=== PATIENT | female | born 1940 | race Caucasian/White ===

== ENCOUNTER 2023-07-31 15:09 | Outpatient (AMB) | payer OTHER, SELFPAY ==
--- NOTE | 2023-07-31 15:33 | HO.SPINEOV ---
Intake Visit Reasons: back pain Intake Note: Ms. Cabello is here today c/o back pain. 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 Patient underwent a bilateral L4-5 lumbar decompression on 03/30/2022. Initially, the surgery had no affect but fortunately just after 2-3 months all her pain disappeared. In March of this year she had a return of complaint in her left leg. Pain radiates from her posterior thigh to the outside of her lower leg into the outside of her left foot. The pain was severe. Fortunately again the pain disappeared on its own. Currently she has 3/10 pain intermittently. There also days that she has no pain. Her main goal is to try to stay active with jogging. I have no objections to performing any form of sports or exercises. I did advise her that if she sees a pattern of returning pain with certain activities to discontinue this activity. She will call my office if a significant flare-up occurs and she considers an intervention. At that point I will order a new MRI of the lumbar spine. I spent 45 minutes in this consult for answering questions. Thank you for letting me take care of your patient. Antonio Wells MD, PhD Spine Fellowship Trained Neurosurgeon Director, [facility] Coding Level of Care Code Est Pt Level 5 (27995) Diagnoses Status post lumbar spine surgery for decompression of spinal cord Z98.890
== END 2023-07-31 16:10 | disposition home or self-care (01) ==
PROVIDERS: PCP Family Medicine; Visit Provider Neurological Surgery
DX: Z98.890 Other specified postprocedural states (principal)
CPT/HCPCS: 99215

== ENCOUNTER → 2023-07-31 15:09 | Outpatient (BNVA) | payer OTHER, SELFPAY | PROVIDERS: PCP Family Medicine; Visit Provider Neurological Surgery ==